=== PATIENT | female | born 1985 | race Caucasian/White ===

== ENCOUNTER 2019-08-07 11:28 | Emergency (ER) | payer OTHER ==
[~2019-08-07] VITALS: Ht 157.5 cm; Wt 51.3 kg
[2019-08-07] MEDS ORDERED: ZITHROMAX500 MG PO (15:44)
[2019-08-07] MEDS ORDERED: INTESTINEX680 M1 PO (15:44)
[2019-08-07] MEDS ORDERED: AIRBORNE EFFER1 EACH PO (15:44)
[2019-08-07] MEDS ORDERED: MUCINEX DM ER1 EAC1 PO (15:44)
== END 2019-08-07 16:12 | disposition home or self-care (01) ==
LOC: ER 11:28
DX: K52.9 Noninfective gastroenteritis and colitis, unspecified (principal); B96.0 Mycoplasma pneumoniae [M. pneumoniae] as the cause of diseases classified elsewhere; B34.9 Viral infection, unspecified